=== PATIENT | female | born 1945 | race Caucasian/White ===

== ENCOUNTER 2020-12-06 11:27 | Day surgery (SDC) | payer MEDICARE, OTHER, SELFPAY ==
[2020-12-06 12:10] VITALS: BP 151/80; PULSE 94; RESP 18; TEMP 36.8; O2SAT 100; BMI 19.9
[2020-12-06] MEDS: Lactated Ringers 1,000 ML 100 ML IV (12:10)
--- NOTE | 2020-12-06 13:00 | BON_PTH ---
PATIENT: DULCE WALTER LOC: [facility] [place] U#:[id number] AGE/SX: 75/F ROOM: RE12/06/[address]: Dr. Calderon Cruz DDS : 1945 BED: DIS: 12/06/2020 SPEC #: [id number] RECD: 12/06/20 15:16 STATUS: [facility] REBel #: [id number] TYRA: 12/06/20 13:[address]: Calderon Cruz DEPT: SURGICAL PATHOLOGY RECD BY: Ashia Delgadillo ENTERED: 12/09/20 08:57 SP TYPE: Bone OTHR DR: No Primary Care Phys Tissues: Mandible, NOS Procedures: Decalcification bone/plaque Surgery Specimen Level IV HEADER OPERATION: Excision miah PRE-OP DIAGNOSIS: Enlarged painful maxillary torus TISSUE SUBMITTED: Maxillary miah MICROSCOPIC DIAGNOSIS Maxillary miah, excision: Fragments of thick cortical-type bone consistent with miah. AM:tiesha 12/13/2020 MICROSCOPIC DESCRIPTION Slides are reviewed. GROSS DESCRIPTION Received in fixative is one container labeled with the patient's name and designated maxillary miah. The specimen consists of two pieces of bone measuring 1.5 x 0.8 x 0.5 cm and 2 x 1.5 x 0.5 cm. The entire specimen will be submitted after decalcification in two cassettes. / SJ:tiesha 12/09/20 TC:5 CPT: 57885, 45033
[2020-12-06] MEDS: Bupivacaine Mpf 0.5% 30 ML VIAL (13:20)
[2020-12-06] MEDS: Lidocaine 2% /Epi 1:100 (50ml) 50 ML Vial (13:20)
[2020-12-06 14:25] VITALS: BP 124/81; BP 151/80; PULSE 105; RESP 18; TEMP 36.4; O2SAT 96
[2020-12-06 14:30] VITALS: BP 130/86; BP 151/80; PULSE 103; RESP 18; O2SAT 97
[2020-12-06 14:45] VITALS: BP 131/80; BP 151/80; PULSE 94; RESP 18; O2SAT 98
[2020-12-06 14:58] VITALS: BP 127/83; BP 151/80; PULSE 79; RESP 18; TEMP 36.1; O2SAT 99
--- NOTE | 2020-12-06 15:03 | OP.PCM_ITS ---
Report of Operation Date of Procedure: 12/06/20 Pre-Operative Diagnosis: Enlarged maxillary miah Post-Operative Diagnosis: Same Surgery/Procedure Performed:: Excision of right maxillary miah-Palatal Description of Surgical Findings:: Dense corticocancellous bone maxilla Surgeon: Calderon Cruz Type of Anesthesia: General/Regional Special Medications: None Specimen's removed: Maxillary bone Drains: None Estimated Blood Loss (mL): 20 cc Fluids Replaced: 500 cc Description of Procedure: Patient was identified in the preoperative holding room where the procedure was discussed with the family and the patient. We have decided to remove the right maxillary palatal miah as it is causing discomfort from retained food due to the large overhanging of the bony shelf. The risk and potential complications with the procedure were avascular necrosis of teeth maxilla and overlying soft tissues. Also was discussed that future need of the remaining maxillary miah may be possible. At this time the patient was taken to the operating room placed into the supine position on the operating room table. Patient was given IV general anesthesia and intubated via the oral endotracheal route. 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 At this time a para median incision was made along the right maxillary palate region extending from the tuberosity anteriorly to the maxillary midline. A full degloving of the soft palatal tissues was performed. Utilizing a surgical handpiece the planned osteotomy was made. At this time using osteotomes the large maxillary miah was from the remaining maxilla. At this time the remainder of the bone was removed with surgical burs and surgical rasps. All bleeding was well controlled. I did not feel that further bony reduction was warranted and the surgical site was irrigated suctioned free of all debris and the soft tissues were reapproximated after trimming excess tissue away. Patient was awakened in the operating room where she was extubated and she was taken to the postanesthesia care unit in stable condition breathing spontaneously. All sponge and needle counts were correct. Grafts/Implants Used: None Procedure Start Time: 01:00 Procedure Stop Time: 02:12 Complications No complications were encountered Admit VTE Documentation VTE Present on Admission: No Reason prophylaxis not ordered:: Treatment Not Indicated
[2020-12-06 15:43] VITALS: BP 130/78; BP 151/80; PULSE 74; RESP 18; TEMP 36.4; O2SAT 100
== END 2020-12-06 16:03 ==
LOC: SDC 11:33 → AC 11:34
PROVIDERS: Referring Provider Dentist Oral and Maxillofacial Surgery; Visit Provider Dentist Oral and Maxillofacial Surgery
PROC: (CPT 21048; principal; 2020-12-06 12:45)
DX: M27.8 Other specified diseases of jaws (principal)
CPT/HCPCS: 00190; 21048; 88305; 88311; J7120; J2405